=== PATIENT | male | born 2000 | race Two or more races ===

== ENCOUNTER 2024-01-07 15:31 | Emergency (ER) | payer MEDICAID ==
[~2024-01-07] VITALS: Ht 167.6 cm; Wt 77.3 kg
[2024-01-07 15:42] VITALS: TEMP 98
[2024-01-07 18:53] VITALS: BP 147/79; PULSE 71; RESP 20
[2024-01-07] MEDS ORDERED: MOXI3DRO25 OS (19:43)
== END 2024-01-07 20:13 | disposition home or self-care (01) ==
LOC: EMS 15:31
DX: H10.9 Unspecified conjunctivitis (principal)
CPT/HCPCS: 99283; Z7502